=== PATIENT | male | born 1960 | race Caucasian/White ===

== ENCOUNTER 2016-09-05 11:14 | Day surgery (SDC) | payer OTHER ==
[~2016-09-05] VITALS: Ht 172.7 cm; Wt 86.2 kg
[~2016-09-05 11:14] MED LIST: OMEPRAZOLE PO; PROBIOTIC PO
[2016-09-05 12:39] VITALS: Ht 172.7 cm; Wt 86.2 kg
[2016-09-05] MEDS ORDERED: [UNRECOGNIZED DRUG - OTHER] (12:52)
[2016-09-05 13:08] VITALS: BP 129/81; PULSE 80; RESP 18
[2016-09-05] MEDS ORDERED: PROPOFOL 20 ML ONE (13:17)
[2016-09-05] MEDS ORDERED: MIDAZOLAM 1 MG/ML 2 ML INJ ONE (13:17)
[2016-09-05] MEDS ORDERED: LIDOCAINE 2% (SDV) 5 ML INJ ONE (13:17)
[2016-09-05 13:45] VITALS: BP 124/77; PULSE 70; RESP 12
--- NOTE | 2016-09-05 14:13 | GILP ---
DATE OF PROCEDURE: NAME OF PROCEDURE: Esophagogastroduodenoscopy and biopsy. SURGEON: Carlo Hastings MD PREOPERATIVE DIAGNOSES: 1. Abdominal pain. 2. Chronic heartburn. POSTOPERATIVE DIAGNOSES: 1. Gastroesophageal reflux disease. 2. Gastritis with erosions. 3. Gastric mucosal biopsies were taken for Helicobacter pylori test. INDICATION FOR THE PROCEDURE: Mr. Daniel Red is a 56-year-old male patient who had upper abd ominal pain and chronic heartburn not responding to therapy. The patient was scheduled for endoscop ic examination for further evaluation. The procedure and possible complications were well explained to the patient, he understood and conse nted to the procedure. DESCRIPTION OF PROCEDURE: Under the influence of anesthesia, the gastroscope was carefully introduc ed into the esophagus and under direct vision, it was advanced to the stomach and through the pyloru s into the duodenal bulb and descending duodenum. FINDINGS: ESOPHAGUS: The patient had gastroesophageal reflux disease. STOMACH: The patient had gastritis with erosions. Gastric mucosal biopsies were taken for H pylori test. DUODENUM: Normal. He tolerated the procedure very well and there was no complication from the procedure. At the end o f the procedure, he was awake with stable vital signs, and he was discharged home to the care of his family. IMPRESSION: Please see postoperative diagnosis. PLAN: 1. Omeprazole 40 mg p.o. every morning. 2. Zantac 300 mg p.o. at bedtime. 3. Await H pylori test report. Dictated By: CARLO HERNANDEZ/DASHA Conf#: [id number] DID#: [id number]
== END 2016-09-05 14:48 | disposition home or self-care (01) ==
LOC: GIL 11:14
PROVIDERS: ATTEND Internal Medicine Gastroenterology
DX: K21.9 Gastro-esophageal reflux disease without esophagitis (principal); K29.60 Other gastritis without bleeding
CPT/HCPCS: 43239; 87081; J2250; Z7610